=== PATIENT | female | born 1975 | race Two or more races ===

== ENCOUNTER 2020-06-24 08:35 | Outpatient (CLI) | payer OTHER | END 2020-06-24 08:36 | disposition home or self-care (01) | LOC: PPH VACUNA 08:35 | DX: Z23 Encounter for immunization (principal) ==

== ENCOUNTER 2020-07-15 08:00 | Outpatient (CLI) | payer OTHER | END 2020-07-15 08:30 | disposition home or self-care (01) | LOC: PPH VACUNA 08:00 | DX: Z23 Encounter for immunization (principal) ==

== ENCOUNTER 2020-09-22 10:47 | Outpatient (CLI) | payer OTHER | END 2020-09-22 10:53 | disposition home or self-care (01) | LOC: MAMO-SONO 10:47 | DX: N64.59 Other signs and symptoms in breast (principal); Z12.31 Encounter for screening mammogram for malignant neoplasm of breast; Z87.898 Personal history of other specified conditions ==

== ENCOUNTER 2021-02-25 09:00 | Outpatient (CLI) | payer OTHER | END 2021-02-25 09:15 | disposition home or self-care (01) | LOC: PPH VACUNA 09:00 | PROVIDERS: ATTEND Emergency Medicine Pediatric Emergency Medicine | DX: Z23 Encounter for immunization (principal) ==

== ENCOUNTER 2021-11-29 10:34 | Outpatient (CLI) | payer OTHER | END 2021-11-29 10:44 | disposition home or self-care (01) | LOC: PPH VACUNA 10:34 | PROVIDERS: ATTEND Emergency Medicine Pediatric Emergency Medicine | DX: Z23 Encounter for immunization (principal) ==

== ENCOUNTER 2022-05-02 12:31 | Emergency (ER) | payer OTHER ==
[~2022-05-02] VITALS: Ht 152.4 cm; Wt 90.7 kg
[2022-05-02] MEDS ORDERED: ZESTRIL20 MG PO (12:48)
[2022-05-02] MEDS ORDERED: PAXIL20 MG PO (12:48)
[2022-05-02] MEDS ORDERED: LIPITOR20 MG PO (12:48)
[2022-05-02] MEDS ORDERED: AMBIEN10 MG PO (12:48)
[2022-05-02] MEDS ORDERED: TRAZODONE HCL50 MG PO (12:49)
== END 2022-05-02 17:00 | disposition home or self-care (01) ==
LOC: ER 12:31
DX: S00.83XA Contusion of other part of head, initial encounter (principal); Y08.89XA Assault by other specified means, initial encounter; Y93.9 Activity, unspecified; Y92.019 Unspecified place in single-family (private) house as the place of occurrence of the external cause